=== PATIENT | female | born 1985 | race Caucasian/White ===

== ENCOUNTER 2021-09-27 08:00 | Outpatient (CLI) | payer OTHER ==
--- NOTE | 2021-09-27 18:56 | XRAY Report ---
PROCEDURE: Chest 2 View X-Ray INDICATIONS: COUGH/CHEST CONGESTION TECHNIQUE: 2 view(s) of the chest. COMPARISON: None. FINDINGS: Surgical changes and devices: None. Lungs and pleura: No pleural effusions or pneumothorax. Lungs are clear. Mediastinum: Mediastinal contours are normal. Heart size is normal. Bones and chest wall: No suspicious bony abnormalities. Soft tissues appear unremarkable. IMPRESSION: No acute process. Reviewed by: Monster Plascencia MD on 09/27/2021 6:54 PM PDT Approved by: Monster Plascencia MD on 09/27/2021 6:54 PM PDT Station ID: [id number]
== END 2021-09-27 23:59 | disposition home or self-care (01) ==
LOC: DI.S 08:00
PROVIDERS: ATTEND Physician Assistant Medical
DX: R05.9 Cough, unspecified (principal); R09.89 Other specified symptoms and signs involving the circulatory and respiratory systems

== ENCOUNTER 2021-09-27 18:40 | Outpatient (CLI) | payer OTHER | END 2021-09-27 23:59 | disposition home or self-care (01) | LOC: LAB.R 18:40 | PROVIDERS: ATTEND Physician Assistant Medical | DX: R05.9 Cough, unspecified (principal); R09.89 Other specified symptoms and signs involving the circulatory and respiratory systems; Z20.822 Contact with and (suspected) exposure to COVID-19 ==